=== PATIENT | male | born 1980 | race American Indian/Alaskan Native ===

== ENCOUNTER 2018-01-14 07:40 | Emergency (ER) | payer OTHER ==
[2018-01-14] MEDS ORDERED: NACL 0.9% 1000 ML 1,000 ML IV ONE (09:34)
[2018-01-14] MEDS ORDERED: MORPHINE IV ONE (09:34)
[2018-01-14] MEDS ORDERED: ZOFRAN IV ONE (09:35)
--- NOTE | 2018-01-14 09:39 | Emergency Department Report ---
Blank Doc - Documentation Documentation: Patient presents to emergency department with chief complaint lower back pain 2 days. Patient states that the pain is located on both sides of the spine and does not radiate. Patient has a history of onboard disc disease with herniation but states this pain feels differently. Patient's blood pressure is 183/111 on presentation. Patient has not had a physical exam or seen a physician in years. At this time blood work will be obtained to evaluate for the patient's renal function and other abnormalities as as well as a CT of abdomen and pelvis for evaluation of patient's organ function. Patient's care will be turned over to the mid-level care provider with me available for consultation
--- NOTE | 2018-01-14 10:00 | Emergency Department Report ---
ED Back Pain/Injury HPI - General Chief Complaint: Back Pain/Injury Stated Complaint: LOWER BACK PAIN Time Seen by Provider: 01/14/18 09:08 Source: patient Limitations: No Limitations - History of Present Illness Initial Comments: Patient presents to emergency department with chief complaint lower back pain 2 days. Patient states that the pain is located on both sides of the spine and does not radiate. Patient has a history of degenerative disc disease with herniation but states this pain feels differently. Patient's blood pressure is 183/111 on presentation. Patient has not had a physical exam or seen a physician in year. Patient said he has a primary care physician that prescribed him HCTZ but he ran out of it 2 weeks ago. Pain is 8/10 and achy to lower back. No alleviating or exacerbating factors. Denies any fever or chills. Denies any headache, chest pain or shortness of breath. Denies any dizziness. No nausea or vomiting . MD Complaint: back pain -: Last night Similar Symptoms Previously: No (chronic back pain but this pain is different) Place: home Radiation: none Severity: severe Severity scale (0 -10): 8 Quality: aching Consistency: intermittent Improves With: movement, walking Worsens With: none Context: unknown Associated Symptoms: denies: confusion, weakness, chest pain, numbness, difficulty walking, cough, difficulty urinating, diaphoresis, incontinence, fever/chills, constipation, headaches, abdominal pain, loss of appetite, malaise , nausea/vomiting, rash, seizure, shortness of breath, syncope Treatments Prior to Arrival: other (none) - Related Data Previous Rx's Medication Instructions Recorded Last Taken Type amLODIPine [Norvasc] 5 mg PO DAILY 30 Days #30 tab 01/14/18 Unknown Rx hydroCHLOROthiazide [HCTZ] 25 mg PO QDAY 30 Days #30 tablet 01/14/18 Unknown Rx levoFLOXacin [Levaquin] 750 mg PO QDAY 6 Days #6 tablet 01/14/18 Unknown Rx Allergies Allergy/AdvReac Type Severity Reaction Status Date / Time NSAIDS (Non-Steroidal Allergy Unknown Verified 01/14/18 07:50 Anti-Inflamma ED Review of Systems ROS: Stated complaint: LOWER BACK PAIN Other details as noted in HPI Constitutional: denies: chills, fever Eyes: denies: eye pain, eye discharge, vision change ENT: denies: ear pain, throat pain, congestion Respiratory: denies: cough, shortness of breath, SOB with exertion, SOB at rest , stridor, wheezing Cardiovascular: denies: chest pain, palpitations, edema, syncope, paroxysmal nocturnal dyspnea Gastrointestinal: denies: abdominal pain, nausea, vomiting, diarrhea, constipation, hematemesis, melena, hematochezia Genitourinary: frequency. denies: urgency, dysuria, hematuria, discharge, testicular pain, testicular mass Musculoskeletal: back pain. denies: joint swelling, arthralgia, myalgia Skin: denies: rash, lesions Neurological: denies: headache, weakness, numbness, paresthesias, confusion, abnormal gait, vertigo ED Past Medical Hx - Past Medical History Previous Medical History?: Yes Hx Hypertension: Yes Hx Diabetes: Yes Additional medical history: GASTRIC ULCERS, HERNIETED DISC - Surgical History Past Surgical History?: Yes Additional Surgical History: HERNIA REPAIR - Family History Family history: hypertension - Social History Smoking Status: Never Smoker Substance Use Type: Alcohol - Medications Home Medications: Home Medications Medication Instructions Recorded Confirmed Last Taken Type amLODIPine [Norvasc] 5 mg PO DAILY 30 Days #30 tab 01/14/18 Unknown Rx hydroCHLOROthiazide [HCTZ] 25 mg PO QDAY 30 Days #30 tablet 01/14/18 Unknown Rx levoFLOXacin [Levaquin] 750 mg PO QDAY 6 Days #6 tablet 01/14/18 Unknown Rx ED Physical Exam - General Limitations: No Limitations General appearance: alert, in no apparent distress - Head Head exam: Present: atraumatic, normocephalic, normal inspection, other (normal exam) - Eye Eye exam: Present: normal appearance, PERRL, EOMI. Absent: nystagmus, periorbital swelling, periorbital tenderness Pupils: Present: normal accommodation - ENT ENT exam: Present: normal exam, normal orophraynx, mucous membranes moist, TM's normal bilaterally, normal external ear exam - Neck Neck exam: Present: normal inspection, full ROM, other (no C-spine tenderness). Absent: tenderness, lymphadenopathy - Respiratory Respiratory exam: Present: normal lung sounds bilaterally. Absent: respiratory distress, chest wall tenderness - Cardiovascular Cardiovascular Exam: Present: regular rate, normal rhythm, normal heart sounds. Absent: systolic murmur, diastolic murmur - GI/Abdominal GI/Abdominal exam: Present: soft, normal bowel sounds. Absent: distended, tenderness, guarding, rebound, rigid, organomegaly, mass, bruit, pulsatile mass , hernia - Extremities Exam Extremities exam: Present: normal inspection, full ROM, normal capillary refill , other (No cce. + 2 pulses in all extremities, no neurovascular compromise). Absent: tenderness, pedal edema, joint swelling, calf tenderness - Back Exam Back exam: Present: normal inspection - Neurological Exam Neurological exam: Present: alert, oriented X3, normal gait, reflexes normal, other (no focal neurological deficit). Absent: motor sensory deficit - Psychiatric Psychiatric exam: Present: normal affect, normal mood - Skin Skin exam: Present: warm, dry, intact, normal color. Absent: rash ED Course Vital Signs 01/14/18 01/14/18 07:50 09:50 Temperature 98.8 F Pulse Rate 77 Respiratory 20 16 Rate Blood Pressure 183/111 O2 Sat by Pulse 95 Oximetry - Reevaluation(s) Reevaluation #1: 01/14/18 12:24 Patient given normal saline 1 L, Zofran 4 mg IV and morphine 4 mg IV which relieved this pain. ED Medical Decision Making - Lab Data Result diagrams: 01/14/18 09:40 01/14/18 09:40 Lab Results 01/14/18 01/14/18 01/14/18 Range/Units 09:40 09:40 10:24 WBC 6.2 (4.5-11.0) K/mm3 RBC 5.01 (3.65-5.03) M/mm3 Hgb 14.2 (11.8-15.2) gm/dl Hct 43.0 (35.5-45.6) % MCV 86 (84-94) fl MCH 28 (28-32) pg MCHC 33 (32-34) % RDW 14.9 (13.2-15.2) % Plt Count 247 (140-440) K/mm3 Lymph % (Auto) 35.8 H (13.4-35.0) % Lanier % (Auto) 8.9 H (0.0-7.3) % Eos % (Auto) 2.1 (0.0-4.3) % Baso % (Auto) 0.8 (0.0-1.8) % Lymph # 2.2 (1.2-5.4) K/mm3 Lanier # 0.6 (0.0-0.8) K/mm3 Eos # 0.1 (0.0-0.4) K/mm3 Baso # 0.1 (0.0-0.1) K/mm3 Seg Neutrophils % 52.4 (40.0-70.0) % Seg Neutrophils # 3.3 (1.8-7.7) K/mm3 Sodium 137 (137-145) mmol/L Potassium 3.9 (3.6-5.0) mmol/L Chloride 99.2 (98-107) mmol/L Carbon Dioxide 25 (22-30) mmol/L Anion Gap 17 mmol/L BUN 12 (9-20) mg/dL Creatinine 1.1 (0.8-1.5) mg/dL Estimated GFR > 60 ml/min BUN/Creatinine Ratio 11 % Glucose 74 L (75-100) mg/dL Calcium 9.0 (8.4-10.2) mg/dL Total Bilirubin 0.40 (0.1-1.2) mg/dL AST 20 (5-40) units/L ALT 18 (7-56) units/L Alkaline Phosphatase 66 (35-129) units/L Total Protein 7.6 (6.3-8.2) g/dL Albumin 4.0 (3.9-5) g/dL Albumin/Globulin Ratio 1.1 % Urine Color Yellow (Yellow) Urine Turbidity Slightly-cloudy (Clear) Urine pH 6.0 (5.0-7.0) Ur Specific Milo 1.015 (1.003-1.030) Urine Protein <15 mg/dl (Negative) mg/dL Urine Glucose (UA) Neg (Negative) mg/dL Urine Ketones Neg (Negative) mg/dL Urine Blood Neg (Negative) Urine Nitrite Neg (Negative) Urine Bilirubin Neg (Negative) Urine Urobilinogen < 2.0 (<2.0) mg/dL Ur Leukocyte Esterase Lg (Negative) Urine WBC (Auto) 22.0 H (0.0-6.0) /HPF Urine RBC (Auto) 2.0 (0.0-6.0) /HPF U Epithel Cells (Auto) 2.0 (0-13.0) /HPF Urine Mucus Few /HPF Urine Yeast (Budding) 1+ /HPF Urine culture pending - Radiology Data Radiology results: report reviewed CT scan of the abdomen and pelvis with contrast dictated by radiologist and report reviewed by myself. See details below ct:[id number] Age/Sex: 37 / M ADM Date: 01/14/18 Loc: ED Attending Dr: Ordering Physician: ANJUM MENDOZA MD Date of Service: 01/14/18 Procedure(s): CT abdomen pelvis w con Accession Number(s): [id number] cc: ANJUM MENDOZA MD CT ABDOMEN PELVIS WITH CONTRAST: HISTORY: Back pain, abdominal pain. COMPARISON: none. TECHNIQUE: Helical CT in 1.25mm intervals following IV contrast. Sagittal and coronal reconstructions. FINDINGS: Lung bases: Normal. Liver: Mild diffuse fatty infiltration is noted throughout the liver. Biliary system: Normal. Pancreas: Normal. Spleen: Normal. Kidneys/ureters/bladder: Normal. Adrenal glands: Normal. Aorta: Normal. Intestines: Within normal limits given no oral contrast was administered. Appendix: Normal. Pelvic viscera: Normal. Ascites: None. Adenopathy: None. Musculoskeletal: Minimal thoracolumbar spondylosis is noted. No evidence for fracture or bone lesion. A small ventral wall defect is noted just above the umbilicus with a 2 cm neck. No inflammatory changes or bowel obstruction. IMPRESSION: No acute process is identified. Mild hepatic steatosis. Small ventral wall defect as described. Transcribed By: TTR Dictated By: ANNETTE GARCIA JR, MD Electronically Authenticated By: ANNETTE GARCIA JR, MD Signed Date/Time: 01/14/18 113 DD/ 113 TD/TT: 01/14/18 1133 - Medical Decision Making This is a 37-year-old male here reports that he has low back pain that started when he got out of bed last night. Patient was also found to have elevated blood pressure of 183/111 with a incident except for lower back pain. He states that he is on HCTZ that he has not taken for 2 weeks because he ran out and he does have a primary care which she has not seen for over a year Assessment/plan 2: Lower back pain-better with morphine 4 mg IV and normal saline 1 L. Patient given Zofran 4 IV to prevent nausea. 1: Hypertensive-better after pain control will refill prescription for HCTZ and start Norvasc low-dose and referred to primary care. Patient also instructed to keep a log of his blood pressure and take log with him for evaluation. [id number] started on Levaquin 750 mg and will be discharged home on Levaquin. I discussed the patient is diagnosis and treatment plan and need to take his blood pressure daily and keep a log and follow up with primary care in 2-3 days and he voiced understanding. I also discussed that he has a urinary tract infection and will take Levaquin he will receive his first dose here and to start taking in tomorrow for a period total of 7 days. Patient voiced understanding of diagnosis and treatment plan. Blood pressures better and his pain is better and discharged home in stable condition with prescription for Levaquin, HCTZ and Norvasc - Differential Diagnosis kidney stone, aortic dissection, exacerbation of chronic back pain, UTI Critical care attestation.: If time is entered above; I have spent that time in minutes in the direct care of this critically ill patient, excluding procedure time. ED Disposition Clinical Impression: Acute cystitis with hematuria, Ventral hernia with obstruction and without gangrene Hypertension Qualifiers: Hypertension type: essential hypertension Qualified Code(s): I10 - Essential ( primary) hypertension Lower back pain Qualifiers: Chronicity: acute Back pain laterality: bilateral Sciatica presence: without sciatica Qualified Code(s): M54.5 - Low back pain Disposition: TO HOME OR SELFCARE Is pt being admited?: No Does the pt Need Aspirin: No Condition: Stable Instructions: Hypertension (ED), Back Pain (ED), Urinary Tract Infection in Men (ED), Ventral Hernia (ED) Additional Instructions: History of a lot of blood pressure and schedule appointment with a primary care doctor for follow-up visit. Please schedule point within 2-3 days Take Levaquin for urinary tract infection, he received her first dose today and you need to start taking tomorrow morning for additional 6 days. A few symptoms worsen, return to the emergency room otherwise follow-up with primary care Please state blood pressure medication as prescribed. Prescriptions: amLODIPine [Norvasc] 5 mg PO DAILY 30 Days #30 tab hydroCHLOROthiazide [HCTZ] 25 mg PO QDAY 30 Days #30 tablet levoFLOXacin [Levaquin] 750 mg PO QDAY 6 Days #6 tablet Referrals: PRIMARY CARE, [Primary Care Provider] - 2-3 Days [facility] [Outside] - 2-3 Days Forms: Work/School Release Form(ED)
[2018-01-14 10:24] LABS: Basophils # (Auto) 0.1 K/mm3 (0.0-0.1); Basophils % (Auto) 0.8 % (0.0-1.8); Eosinophils # (Auto) 0.1 K/mm3 (0.0-0.4); Eosinophils % (Auto) 2.1 % (0.0-4.3); Hemoglobin 14.2 gm/dl (11.8-15.2); Lymphocytes # (Auto) 2.2 K/mm3 (1.2-5.4); Lymphocytes % (Auto) 35.8 % (13.4-35.0); Mean Corpuscular HGB Conc 33 % (32-34); Mean Corpuscular Hemoglobin 28 pg (28-32); Mean Corpuscular Volume 86 fl (84-94); Monocytes # (Auto) 0.6 K/mm3 (0.0-0.8); Monocytes % (Auto) 8.9 % (0.0-7.3); Platelet Count 247 K/mm3 (140-440); Red Blood Count 5.01 M/mm3 (3.65-5.03); Red Cell Distribution Width 14.9 % (13.2-15.2)
[2018-01-14 10:44] LABS: Alanine Aminotransferase 18 units/L (7-56); BUN/Creatinine Ratio 11; Blood Urea Nitrogen 12 mg/dL (9-20); Hemolysis Index 14
[2018-01-14 10:49] LABS: Bilirubin,Urine NEG (Negative); Blood,Urine NEG (Negative); Color,Urine Yellow (Yellow); Mucus,Urine FEW /HPF; Protein,Urine <15 mg/dL mg/dL (Negative); Urobilinogen,Urine < 2.0 mg/dL (<2.0)
--- NOTE | 2018-01-14 11:34 | Cat Scan Report ---
CT ABDOMEN PELVIS WITH CONTRAST: HISTORY: Back pain, abdominal pain. COMPARISON: none. TECHNIQUE: Helical CT in 1.25mm intervals following IV contrast. Sagittal and coronal reconstructions. FINDINGS: Lung bases: Normal. Liver: Mild diffuse fatty infiltration is noted throughout the liver. Biliary system: Normal. Pancreas: Normal. Spleen: Normal. Kidneys/ureters/bladder: Normal. Adrenal glands: Normal. Aorta: Normal. Intestines: Within normal limits given no oral contrast was administered. Appendix: Normal. Pelvic viscera: Normal. Ascites: None. Adenopathy: None. Musculoskeletal: Minimal thoracolumbar spondylosis is noted. No evidence for fracture or bone lesion. A small ventral wall defect is noted just above the umbilicus with a 2 cm neck. No inflammatory changes or bowel obstruction. IMPRESSION: No acute process is identified. Mild hepatic steatosis. Small ventral wall defect as described.
[2018-01-14 12:17] VITALS: BP 141/104
[2018-01-14] MEDS ORDERED: LEVAQUIN PO ONE (12:25)
== END 2018-01-14 12:52 | disposition home or self-care (01) ==
LOC: ED 07:40
DX: N30.01 Acute cystitis with hematuria (principal); K43.9 Ventral hernia without obstruction or gangrene; I10 Essential (primary) hypertension; E11.9 Type 2 diabetes mellitus without complications; Z88.8 Allergy status to other drugs, medicaments and biological substances
CPT/HCPCS: 36415; 74177; 80053; 81001; 85025; 87086; 96374; 96375; 99284; J2270; J2405; J7030; Q9967; 96361